=== PATIENT | female | born 1995 | race Caucasian/White ===

== ENCOUNTER 2024-02-27 08:51 | Outpatient (AMB) | payer OTHER, SELFPAY ==
--- NOTE | 2024-02-27 08:57 | A.OFFPC_ITS ---
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 Required: No Is last menstrual period known: Yes Last menstrual period: 02/24/24 Post menopausal: No Patient : No Allergies amoxicillin Allergy (Mild, Verified 02/27/24 09:25) rash Penicillins Allergy (Mild, Verified 02/27/24 09:25) rash all nuts Allergy (Severe, Uncoded 02/27/24 09:38) Anaphylaxis Tobacco use date assessed: 02/27/24 Dental Screening Dental Screen Date: 02/27/24 Did you have a dental visit in the last 12 months?: Yes Did you have a dental problem in the last 6 months where you did not have access to dental care?: No Was dental information given to patient?: Patient has dentist HPI HPI Comments History of Present Illness Details 28-year-old female presents to establish care. Last PCP: [facility] Last visit/CPE/labs: 2 years ago The patient has past medical history significant for eczema and migraines. The eczema has been a long-standing condition and was not associated with any recent exacerbations. Her migraines occur without an aura but are associated with temporary left eye vision changes that last about 20 minutes before the onset of a severe headache. These migraines have become more frequent. The patient uses Advil for relief; however, it is ineffective, and symptoms typically resolve with sleep. She has been experiencing these symptoms for approximately two years, with no change in pattern recently. 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 She requires a refill for the Epipen. Additionally, she mentioned an allergy to amoxicillin and penicillin, which also causes her throat to close. Health maintenance - Routine physical exam two years ago - Last comprehensive lab testing two yea rs ago - Examined by a dentist 10 months ago, p zuleyka advised to schedule annual visits - Pap smear conducted three years ago, a dvised to schedule a new test - Tetanus vaccination last administered two years ago - Received COVID-[address] approximately a year and a half ago - Declined flu vaccine currently - Encouraged to follow a healthy diet an d exercise - Last eye exam was over 5 years ago. Ad vised to schedule an eye exam due to the frequency of migraines. 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 - Family: Mother of two - No structured exercise regimen but eng ages in continuous movement due to work and parenthood responsibilities - Does not smoke or use alcohol - Healthy dietary habits FM - Father: HTN PFSH Medical History (Updated 02/27/24 @ 09:46 by Char Hogue CNP) Eczema Migraine Family History (Updated 02/27/24 @ 09:10 by Khushbu Zhao) Father High blood pressure Social History Housing: [facility] Patient Tobacco Use Status: Never used Tobacco e-Cigarette/Vaping Use: Never Used Second Hand Smoke Exposure: No service: No Current occupational status: employed 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 1. Little interest or pleasure in doing things: not at all 2. Feeling down, depressed, or hopeless: not at all 3. Trouble falling or staying asleep, or sleeping too much: not at all 4. Feeling tired or having little energy: not at all 5. Poor appetite or overeating: not at all 6. Feeling bad about yourself - or that you are a failure or have let yourself or your family down: not at all 7. Trouble concentrating on things, such as reading the newspaper or watching television: not at all 8. Moving or speaking so slowly that other people could have noticed. Or the opposite - being so fidgety or restless that you have been moving around a lot more than usual: not at all 9. Thoughts that you would be better off or of hurting yourself in some way: not at all Total score: 0 Depression Screening Interpretation: Negative Depression Screening Done: Yes 03707 - PHQ-9 Billing: Yes Source: Developed by Drs. Torsten L. Cecilia Rowe Kurt Kroenke and colleagues, with an educational osvaldo from [employer]. Thrive Questionnaire Date Thrive assessed: 02/27/24 I am a: Patient What is your living situation today?: I have a steady place to live Within the past 12 months, did the food you bought not last and you didn't have the money to get more?: Never true Within the past 12 months, did you worry whether your food would run out before you got money to buy more?: I choose not to answer this question Do you have trouble paying for medicines?: No Do you have trouble getting transportation to medical appointments?: No Do you have trouble paying your heating and electricity bill?: No Do you have trouble taking care of your child, family member or friend?: No Do you have trouble with day-to-day activities such as bathing, preparing meals, shopping, managing finances, etc.?: I choose not to answer this question Are you currently unemployed and looking for a job?: No Are you interested in more education?: No Please select the resources that you would like help with: None Currently or been in a relationship where the following occur: No concerns reported THRIVE Score: 0 AUDIT C Alcohol Use Questionnaire (AUDIT-C) 1. How often do you have a drink containing alcohol?: Monthly or less 2. How many drinks containing alcohol do you have on a typical day when you are drinking?: 1 or 2 3. How often do you have six or more drinks on one occasion?: Never Total Score: 1 Score Reviewed/Action Taken: Yes IFTIKHAR-7 AMB Questionnaire IFTIKHAR-7 Date IFTIKHAR - 7 assessed: 02/27/24 Feeling nervous, anxious, or on edge: 0 = Not at all Not being able to stop or control worryin = Not at all Worrying too much about different things: 0 = Not at all Trouble relaxin = Not at all Being so restless that it is hard to sit still: 0 = Not at all Becoming easily annoyed or irritable: 0 = Not at all Feeling afraid as if something awful might happen: 0 = Not at all Total IFTIKHAR-7 score (0-4 normal; 5-9 mild; 10-14 moderate; 15-21 severe): 0 Source: Developed by Cecilia Mims Rick, Zain Fraser and colleagues, with an educational osvaldo from [employer]. IFTIKHAR-7 Assessment Billing IFTIKHAR-7 Assessment Tool: IFTIKHAR-7 Assessment 48903 Review of Systems Const Details: Denies chills, Denies fatigue, Denies fever(s), Denies headache(s) and Denies weakness HEENT Denies change in vision, Denies dizziness, Denies headache(s), Denies hearing loss, Denies nasal congestion, Denies sinus pain, Denies sinus pressure and Denies sore throat Card Denies chest pain, Denies lightheadedness, Denies dyspnea and Denies other (palpitations) Resp Denies cough, Denies dyspnea and Denies wheezing GI Denies abdominal pain, Denies melena, Denies hematochezia, Denies change in bowel habits, Denies dyspepsia and Denies nausea Denies hematuria and Denies dysuria Musc Denies abnormal gait, Denies myalgias, Denies arthralgias, Denies numbness and Denies tingling Skin/Breast Denies rash, Denies unusual bruising and Denies wounds Neuro Denies abnormal gait, Denies dizziness, Denies headache(s), Denies memory loss, Denies numbness, Denies Sensory deficit (Neuro), Denies tingling and Denies weakness Psych Denies anxiety, Denies depression and Denies memory loss Endo Denies cold intolerance, Denies fatigue, Denies heat intolerance, Denies polydipsia and Denies polyuria Tony/Lymph Denies easy bleeding and Denies easy bruising Aller/Immun Denies wheezing Physical exam (Primary Care) Vital Signs: Last Vital Signs Temp 98.7 F 02/27/24 09:04 Pulse 72 02/27/24 09:04 Resp 16 02/27/24 09:04 BP 119/68 02/27/24 09:04 Pulse Ox 100 02/27/24 09:04 Oxygen Delivery Method Room Air 02/27/24 09:04 BMI result Body Mass Index 29.6 Tobacco/Smoking Status: Tobacco use Status Tobacco use date assessed 02/27/24 02/27/24 09:03 Patient Tobacco Use Status Never used Tobacco 02/27/24 09:03 e-Cigarette/Vaping Use Never Used 02/27/24 09:03 PHQ-9: PHQ-9 Score PHQ-9: Total score 0 02/27/24 08:59 Depression Screening Interpretation: Negative Thrive Assessment: Date of Thrive Assessment Date Thrive assessed 02/27/24 02/27/24 08:59 Currently or been in a relationship where the following occur: No concerns reported Const Other: General: no acute distress, well developed, alert and awake Nutritional Appearance: well nourished Orientation/consciousness: patient oriented x3 HENMT Head: Yes normocephalic and Yes atraumatic Ears: hearing grossly normal bilaterally and TM's normal bilaterally General nose exam: Normal external nose present and Normal nares present Mouth: Normal oral and palatal mucosa present and moist mucous membranes Teeth and gingiva: dentition normal Throat: Yes oropharynx normal Eyes Pupils: Equal, round and reactive pupils present and Pupil accommodation reflex normal EOM: EOMs intact bilaterally Neck Neck: Yes normal visual inspection, Yes no lymphadenopathy and Yes trachea midline Thyroid: Thyroid normal Carotids: no bruits Lymphatic: no lymphadenopathy noted Chest Chest palpation & inspection: normal inspection of the chest Resp Effort & Inspection: normal respiratory effort Auscultation: clear to auscultation bilaterally Cardio Rate: regular rate Rhythm: regular rhythm Heart sounds: S1 normal heart sound present, S2 normal heart sound present, no gallops, no murmurs and no rubs Bruits: no abdominal aortic bruits and no carotid bruits GI Palpation (GI): No Abdominal aortic bruit present, Soft to palpation, nontender, No hepatosplenomegaly present and No Rebound tenderness present Auscultation: normal bowel sounds General: Yes no CVA tenderness Back/Spine/Pelvis Back: no CVA tenderness Cervical Spine: cervical ROM normal and No Cervical spine tenderness Thoracic/Lumbar Spine: thoraco-lumbar ROM normal, No pain with thoraco-lumbar ROM, No thoracic spinal tenderness and No lumbar spinal tenderness Skin General: warm and dry. Normal skin color. Normal skin turgor Lesions: no lesions Rashes: no rashes Trauma: no lacerations or abrasions Wounds: no wounds Nails: normal Neuro General: patient oriented x3, gait normal and CN's II-XI intact bilaterally Cranial nerves: Yes Equal, round and reactive pupils present Cognition (Neuro): normal cognition Gait exam (Neuro): Normal gait present Motor exam (neuro): 5/5 motor strength present throughout Sensory Exam: No Sensory deficit (Neuro) Deep tendon reflexes (DTR's): Right patellar reflex intensity grade: 2+ and Left patellar reflex intensity grade: 2+ Extrem General: Yes normal to inspection, No edema and No calf tenderness Psych Appearance: grossly normal Affect: normal affect Attitude: cooperative Thought process: Normal thought process present Coding Level of Care Code New Pt Prev Care 18-39yr([id number] Diagnoses Normal physical examination, routine Z00.00 Eczema L30.9 Migraine G43.909 Eye exam, routine Z01.00 Laboratory tests ordered as part of a complete physical exam (CPE) Z00.00 Additional Codes IFTIKHAR-7 Assessment Billing - IFTIKHAR-7 Assessment Tool: IFTIKHAR-7 Assessment 58348 ([id number]) PHQ-9 - 86661 - PHQ-9 Billing: Yes ([id number]) Assessment & Plan Assessment & Plan (1) Normal physical examination, routine: Code(s): Z00.00 - Encounter for general adult medical examination without abnormal findings Category: Medical Plan: No significant functional limitation noted. (2) Eczema: Code(s): L30.9 - Dermatitis, unspecified Category: Medical Plan: Monitor symptoms and advise on skin care management as needed. (3) Migraine: Code(s): G43.909 - Migraine, unspecified, not intractable, without status migrainosus Category: Medical Plan: Recommend trying Excedrin or Tylenol for relief. Encourage timely eye examination to rule out underlying visual issues contributing to migraines. (4) Eye exam, routine: Code(s): Z01.00 - Encounter for examination of eyes and vision without abnormal findings Category: Medical Plan: Referred to ophthalmology (5) Laboratory tests ordered as part of a complete physical exam (CPE): Code(s): Z00.00 - Encounter for general adult medical examination without abnormal findings Category: Medical Plan: Fasting labs ordered as part of a complete physical exam. Advised to fast for at least 10 hours before getting labs drawn. May drink water Verbalized understanding and agreed with treatment plan. Plan I discussed the management of the patient's migraines, including the recommendation to try Excedrin or Tylenol to gauge effectiveness. The need for scheduling an eye exam was emphasized to rule out any visual contributors to the increased frequency of migraines. We reviewed the patient's allergies thoroughly, particularly the severe allergic reactions to nuts and the need for an Epipen refill. I reminded the patient about the importance of completing a Pap smear and dental check-ups and encouraged maintaining her healthy lifestyle choices. The patient was advised to contact us should her migraine symptoms worsen or become unmanageable with recommended treatments. Orders: Orders Complete Blood Count Auto Diff Today Z00.00 - Encounter for general adult medical examination without abnormal findings Comprehensive [place]. Panel Fast Today Z00.00 - Encounter for general adult medical examination without abnormal findings Lipid Panel Today Z00.00 - Encounter for general adult medical examination without abnormal findings TSH reflex Free T4 Today Z00.00 - Encounter for general adult medical e xamination without abnormal findings UA CC w/rflx Micro + Cult Today Z00.00 - Encounter for general adult medical examination without abnormal findings Referrals Ophthalmology Referral Z01.00 - Encounter for examination of eyes and vision without abnormal findings Medications: New epinephrine (EpiPen 2-Adán) for 2 doses 0.3 mg (0.3 mL) IM Q10M PRN 2 ea 3RF anaphylaxis Patient Instructions: - Schedule an eye exam and a Pap smear - Continue carrying the Epipen and renew prescription - Try Excedrin or Tylenol for migraine relief - Maintain healthy dietary habits and physical activity - Have lab work done before the next visit (telehealth) in 2-3 weeks with fasting as advised Patient was informed and verbally consented to the use of an ambient scribe for clinic note documentation during this visit.
[2024-02-27 09:04] VITALS: BP 119/68; PULSE 72; RESP 16; TEMP 37.1; O2SAT 100; BMI 29.6
--- OUTSIDE RECORDS SUMMARY | 2024-02-29 13:34 | XMS_ITS | Data Portability ---
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 Plan of Treatment Reminders Order Date Submit Date Provider Last Modified By Organization Details Last Modified Time Details Appointments None recorded. Lab None recorded. Referral None recorded. Procedures cerumen removal using irrigation (PROC) 2022 023 [email or web address] Not available 10:27:16 Surgeries None recorded. Imaging None recorded. Medication Orders Debrox 6.5 % ear drops [address] [id number], [address], [place], [address], 14:45:00 Patient TargetsNo targets recorded. Patient Instructions Encounter Date Encounter Id Patient Instructions Last Modified By Organization Details Last Modified Time 06/13/2022 [id number] earwax blockage: care instructions [email or web address] Not available 06/13/2022 14:44:52 Reason for Referral None Reported. Problems No Known Problems Medical Equipment None Reported. Allergies Allergen ID Allergen Name Allergen Category Reaction Reaction Severity Criticality Documentation Date Start Date Code Code System Note Provider Name and Address Organization Details Recorded Time 936415 amoxicill in medicatio n rash Not available Not available 06/13/2022 723 RxNorm [facility] 13:56:27 921221 Medicinal product containin g penicilli n and acting as antibacte rial agent (product) medicatio n rash Not available Not available 06/13/2022 36505 05 SNOMED FRANCESCO alvarez, [place] - [facility] 13:56:40 Medications Name Sig Start Date Stop Date Status Note LastModified by Organization Details LastModified Time Debrox 6.5 % ear drops INSTILL 5 DROPS INTO AFFECTED EAR(S) BY OTIC ROUTE 2 TIMES PER DAY 023 active Not Available Not Available Not Avai lable Vitals Date Recorded Body height Body mass index (BMI) Body weight Body temperature Oxygen saturation Oxygen saturation in Arterial blood by Pulse oximetry Heart rate Respiratory rate Systolic blood pressure Diastolic blood pressure Provider Name and Address Organization Details Last Updated DateTime 157.48 cm 29.3 kg/m2 34551.7 8 g 98.5 [degF] 98 % 98 % 86 /min 16 /min 100 mm[Hg] 66 mm[Hg] FRANCESCO ATWOOD PA - [facility] 13:59:10 Social History Question Answer Notes LastModified by Organizat ion Details LastModified Time Tobacco Smoking Status Never Smoker FRANCESCO alvarez, [place] - [facility] 06/13/2022 13:57:09 What Is Your Level Of Alcohol Consumption? None [email or web address] Information not available 06/13/2022 Do You Use Any Illicit Or Recreational Drugs? No [email or web address] Information not available 06/13/2022 Have You Recently Traveled Abroad? No [email or web address] Information not available 06/13/2022 Do You Or Have You Ever Used Any Other Forms Of Tobacco Or Nicotine? No [email or web address] Information not available 06/13/2022 Sex: Unknown Functional Status None recorded. Mental Status None recorded. Family History Relationship Description Onset Age of this Age Resolved Age Notes LastModified by Organization Details LastModified Time Father No current problems or disability [email or web address] Not available 06/13 13:56:56 Mother No current problems or disability [email or web address] Not available 06/13 13:56:56 Medical History No medical history recorded. Gynecological HistoryNo gynecological history recorded. Obstetrics History GPAL:G 0 P 0 0 0 0 Past Encounters Encounter ID Performer Location Encounter Start Date Encounter Closed Date Diagnosis/Indication Diagnosis SNOMED-CT Code Diagnosis ICD10 Code [id number] [address] [facility] [address] 03/11/2021 08:11:41 03/11/2021 09:01:10 [id number] [place] Trotter [place] [address] [facility] [address] 06/13/2022 13:38:58 06/13/2022 14:49:12 Impacted cerumen of bilateral ears [id number] H61.23 Health Concerns Section Related Observation LastModified by Organization Detai ls LastModified Time None Recorded Concern Status LastModified by Organization Details LastModified Time None Recorded Advance Directives Directive None Recorded Payers Encounter Date Sequence Insurance Name Policy Number Policy Kelley Covered Member ID Kelley Member ID Guarantor Name 03/11/2021 1 [employer]: [employer] EM[employer] (PPO) Logan Patricia [id number] Eufeima Patricia 06/13/2022 1 [facility] (MEDICAID HMO) [id number] Eufemia Patricia [id number] Eufemia Patricia Notes Date Note Type Note Provider Name and Address Organization Details Recorded Time 06/13/2022 text/html 27 yo female c/o R ear clogged x no painno recent swimmingno ear trauma+ qtip use No feverNo chillsNo coughNo difficulty breathing or respiratory distressNo CPNo congestionNo ear painNo sore throatNo Abdominal painNo nauseaNo vomitingNp diarrheaNo myalgiaNo fatigueNo rashNo HANo dizzinessNo recent travelNo known sick contacts Hugo Trotter DO [address] [place], [address], [place] - [facility] 06/13/2022 14:45:48 OBGyn Episode No OBEpisode recorded.
== END 2024-02-27 09:37 | disposition home or self-care (01) ==
PROVIDERS: PCP Nurse Practitioner Family; Visit Provider Nurse Practitioner Family
DX: Z00.00 Encounter for general adult medical examination without abnormal findings (principal); L30.9 Dermatitis, unspecified; G43.909 Migraine, unspecified, not intractable, without status migrainosus

== ENCOUNTER → 2024-02-27 08:51 | Outpatient (BNVA) | payer OTHER, SELFPAY | PROVIDERS: Visit Provider Nurse Practitioner Family | DX: Z00.00 Encounter for general adult medical examination without abnormal findings (principal); L30.9 Dermatitis, unspecified; G43.909 Migraine, unspecified, not intractable, without status migrainosus | CPT/HCPCS: 96127; 99385 ==